=== PATIENT | female | born 1980 | race Asian ===

== ENCOUNTER 2020-06-21 12:45 | Emergency (ER) | payer OTHER ==
--- NOTE | 2020-06-21 14:59 | ED Physician Documentation ---
PD HPI SKIN - Stated complaint Stated Complaint: RASH - Chief complaint Chief Complaint: Wound - History obtained from History obtained from: Patient - Additional information Additional information: Pt presents w/ pruritic rash on legs, arms, torso for several days. Improving but still present. Pruritic. Denies recent swimming or water contact, hiking, new soaps/lotions/meds/foods, or other irritant contacts. No one else in the house has a similar rash. Hasn't slept anywhere else. Denies fever or systemic sx. Taking cetirizine w/o relief. Review of Systems Constitutional: reports: Reviewed and negative Cardiac: reports: Reviewed and negative Respiratory: reports: Reviewed and negative GI: reports: Reviewed and negative Skin: reports: Rash. denies: Lesions, Abrasion (s), Laceration (s), Bite / sting Musculoskeletal: reports: Reviewed and negative Neurologic: reports: Reviewed and negative Psychiatric: reports: Reviewed and negative PD PAST MEDICAL HISTORY - Past Medical History Past Medical History: No - Present Medications Home Medications: Ambulatory Orders Medication Instructions Recorded Confirmed hydrOXYzine HCL [Hydroxyzine HCl] 25 mg PO Q8H PRN #30 tablet 06/21/20 predniSONE [Prednisone] 40 mg PO DAILY #10 tablet 06/21/20 - Allergies Allergies/Adverse Reactions: Allergies Allergy/AdvReac Type Severity Reaction Status Date / Time No Known Drug Allergies Allergy Verified 06/21/20 12:53 PD ED PE NORMAL - Vitals Vital signs reviewed: Yes - General General: Alert and oriented X 3, No acute distress, Well developed/nourished - Cardiac Cardiac: RRR, No murmur, No gallop, No rub - Respiratory Respiratory: No respiratory distress, Clear bilaterally - Abdomen Abdomen: Normal bowel sounds, Non tender, Non distended - Derm Derm: Normal color, Other (red raised papules/bites on arms, legs, torso excluding palms/soles/face. some areas excoriated, no drainage, no tenderness or erythema. ) - Neuro Neuro: Alert and oriented X 3 Eye Opening: Spontaneous Motor: Obeys Commands Verbal: Oriented GCS Score: 15 - Psych Psych: Normal mood, Normal affect Results - Vitals Vitals: Vital Signs - 24 hr 06/21/20 06/21/20 12:53 15:06 Temperature 36.5 C 36.5 C Heart Rate 120 H 116 H Respiratory 14 16 Rate Blood Pressure 121/83 H 114/69 O2 Saturation 98 98 Oxygen O2 Source Room air PD MEDICAL DECISION MAKING - ED course Complexity details: considered differential, d/w patient ED course: Pt with diffuse rash on arms, legs, torso. Suspect a mite or bedbug but no one else in the family with same. No other possible irritant contacts. Rash is improving though still quite present. Will do hydroxyzine and prednisone for pruritis. If no improvement in 5-7 days, follow up with PCP. If any drainage, swelling, pain, fever, or otherwise worsening sx, return to the ER. Departure - Departure Disposition: 01 Home, Self Care Condition: Good Prescriptions: hydrOXYzine HCL [Hydroxyzine HCl] 25 mg PO Q8H PRN #30 tablet PRN Reason: pruritis predniSONE [Prednisone] 40 mg PO DAILY #10 tablet Discharge Date/Time: 06/21/20 15:06
[2020-06-21 15:06] VITALS: BP 114/69
== END 2020-06-21 15:06 | disposition home or self-care (01) ==
LOC: ED 12:45
DX: L29.9 Pruritus, unspecified (principal); R21 Rash and other nonspecific skin eruption
CPT/HCPCS: 99282; 99284

== ENCOUNTER 2024-03-21 11:26 | Emergency (ER) | payer OTHER ==
[2024-03-21 11:56] LABS: BILIRUBIN,URINE NEGATIVE (NEGATIVE); GLUCOSE, URINE (UA) >=1000 mg/dL (NEGATIVE); KETONES,URINE (UA) NEGATIVE (NEGATIVE); LEUKOCYTE ESTERASE, URINE TRACE (NEGATIVE); NITRITE,URINE NEGATIVE (NEGATIVE); OCCULT BLOOD,URINE MODERATE (NEGATIVE); PROTEIN,URINE 30 mg/dL (NEGATIVE); UROBILINOGEN,URINE 0.2 (NORMAL) E.U./dL (NORMAL)
[2024-03-21 12:03] LABS: BASOPHILS # (AUTO) 0.1 10^3/uL (0.0-0.1); BASOPHILS % (AUTO) 0.5 %; EOSINOPHILS # (AUTO) 0.1 10^3/uL (0.0-0.7); EOSINOPHILS % (AUTO) 0.9 %; HCT - HEMATOCRIT 43.9 % (37.0-47.0); HGB - HEMOGLOBIN 14.7 g/dL (12.0-16.0); LYMPHOCYTES # (AUTO) 2.2 10^3/uL (1.5-3.5); LYMPHOCYTES % (AUTO) 23.6 %; MEAN CORPUSCULAR HEMOGLOBIN 30.4 pg (27.0-31.0); MEAN CORPUSCULAR HGB CONC 33.5 g/dL (32.0-36.0); MEAN CORPUSCULAR VOLUME 90.9 fL (81.0-99.0); MEAN PLATELET VOLUME 9.3 fL (7.9-10.8); MONOCYTES # (AUTO) 0.3 10^3/uL (0.0-1.0); MONOCYTES % (AUTO) 3.5 %; NEUTROPHILS # (AUTO) 6.6 10^3/uL (1.5-6.6); PLT - PLATELET COUNT 262 10^3/uL (130-450); RED BLOOD COUNT 4.83 10^6/uL (4.20-5.40); RED CELL DISTRIBUTION WIDTH 11.6 % (12.0-15.0); WHITE BLOOD COUNT 9.3 x10^3/uL (4.8-10.8)
[2024-03-21 12:13] LABS: ALBUMIN 4.4 g/dL (3.2-5.5); ALBUMIN/GLOBULIN RATIO 1.4 (1.0-2.2); BILIRUBIN,TOTAL 0.4 mg/dL (0.2-1.0); CALCIUM 9.5 mg/dL (8.5-10.3); POTASSIUM 3.7 mmol/L (3.5-4.5); TOTAL PROTEIN 7.5 g/dL (6.4-8.9)
[2024-03-21] MEDS ORDERED: iohexoL-300 100 ML VIAL ONE (12:20)
[2024-03-21] MEDS: ONDANSETRON 4 MG/2 ML VIAL IVP STA (12:22)
[2024-03-21] MEDS: KETOROLAC 30 MG/ML VIAL IVP STA (12:24)
--- NOTE | 2024-03-21 12:25 | ED Physician Documentation ---
PD HPI ABD PAIN - Stated complaint Stated Complaint: ABD PX,NAUSEOUS,CHILLS - Chief complaint Chief Complaint: Abd Pain - History obtained from History obtained from: Patient - History of Present Illness Timing - onset: Yesterday Timing - details: Gradual onset Pain level max: 7 Pain level now: 6 Quality: Fullness/distended, Pain Location: LLQ Radiation: No: Chest, , Lower back, Left flank, Left shoulder, Right flank, Right shoulder, Upper back Improved by: Laying still Worsened by: Palpation Associated symptoms: Nausea. No: Fever, Vomiting, Hematemesis, Diarrhea, Const ipation, Melena, Hematochezia, Dysuria, Hematuria, Near syncope / syncope Recently seen: Not recently seen - Additional information Additional information: 43-year-old female presents to the emergency department complaining of left lower quadrant abdominal pain. She states that this started yesterday and has continued today. hShe denies any dysuria or urinary symptoms. States has had a kidney stone in the past and is unsure if this feels similar or not. She states that she feels "bloated". Denies any constipation, diarrhea. Feels nauseated but no vomiting. No fevers. No chills. No recent travel. No recent antibiotics. Took Tylenol this morning for her abdominal pain. Denies any possibility of . Review of Systems Constitutional: denies: Fever, Chills Nose: denies: Rhinorrhea / runny nose, Congestion GI: denies: Vomiting, Constipation, Diarrhea, Hematemesis, Bloody / black stool : denies: Dysuria, Frequency, Hesitancy, Incontinent, Hematuria, Discharge, Now EGA Skin: denies: Rash Musculoskeletal: denies: Neck pain PD PAST MEDICAL HISTORY - Past Medical History Past Medical History: Yes Endocrine/Autoimmune: Type 2 diabetes - Past Surgical History Past Surgical History: Yes /[employer]: section - Present Medications Home Medications: Ambulatory Orders Medication Instructions Recorded Confirmed hydrOXYzine HCL [Hydroxyzine HCl] 25 mg PO Q8H PRN #30 tablet 06/21/20 predniSONE [Prednisone] 40 mg PO DAILY #10 tablet 06/21/20 Cefpodoxime Proxetil [Vantin] 100 mg PO Q12H #20 tablet 03/21/24 HYDROcod/ACETAM 5/325 [[place] 5/325] 1 - 2 ea PO Q6H PRN #14 tablet 03/21/24 Ibuprofen [Motrin] 800 mg PO Q8H PRN #30 tablet 03/21/24 Ondansetron Odt [Zofran] 4 mg TL Q6H PRN #20 tablet 03/21/24 - Allergies Allergies/Adverse Reactions: Allergies Allergy/AdvReac Type Severity Reaction Status Date / Time No Known Drug Allergies Allergy Verified 03/21/24 11:40 - Social History Does the pt smoke?: No Smoking Status: Former smoker Does the pt drink ETOH?: Yes Does the pt have substance abuse?: No PD ED PE NORMAL - Vitals Vital signs reviewed: Yes - General General: Alert and oriented X 3, No acute distress - HEENT HEENT: Moist mucous membranes - Neck Neck: Supple, no meningeal sign - Cardiac Cardiac: RRR, Strong equal pulses - Respiratory Respiratory: No respiratory distress, Clear bilaterally - Abdomen Abdomen: Soft, Non distended, Other (Mild tenderness to palpation left lower quadrant. No peritoneal signs.) - Female Female : Pt declined - Back Back: No CVA TTP, No spinal TTP - Derm Derm: Warm and dry - Extremities Extremities: No edema - Neuro Neuro: Alert and oriented X 3 - Psych Psych: Normal mood, Normal affect Results - Vitals Vitals: Vital Signs - 24 hr 03/21/24 03/21/24 11:35 13:40 Temperature 36.2 C L 36.8 C Heart Rate 84 90 Respiratory 18 16 Rate Blood Pressure 141/112 H 130/88 H O2 Saturation 99 98 Oxygen O2 Source Room air - Labs Labs: Laboratory Tests 03/21/24 03/21/24 03/21/24 11:46 11:51 11:51 WBC 9.3 RBC 4.83 Hgb 14.7 Hct 43.9 MCV 90.9 MCH 30.4 MCHC 33.5 RDW 11.6 L Plt Count 262 MPV 9.3 Neut # (Auto) 6.6 Lymph # (Auto) 2.2 Addison # (Auto) 0.3 Eos # (Auto) 0.1 Baso # (Auto) 0.1 Absolute Nucleated RBC 0.00 Nucleated RBC % 0.0 Sodium 137 Potassium 3.7 Chloride 100 L Carbon Dioxide 28 Anion Gap 9.0 BUN 16 Creatinine 1.0 Estimated GFR (MDRD) 61 L Glucose 266 H Calcium 9.5 Total Bilirubin 0.4 AST 19 ALT 26 Alkaline Phosphatase 40 L Total Protein 7.5 Albumin 4.4 Globulin 3.1 Albumin/Globulin Ratio 1.4 Lipase 72 Urine Color YELLOW Urine Clarity CLEAR Urine pH 6.0 Ur Specific [place] 1.025 Urine Protein 30 H Urine Glucose (UA) >=1000 H Urine Ketones NEGATIVE Urine Occult Blood MODERATE H Urine Nitrite NEGATIVE Urine Bilirubin NEGATIVE Urine Urobilinogen 0.2 (NORMAL) Ur Leukocyte Esterase TRACE H Urine RBC 6-10 H Urine WBC >25 H Urine WBC Clumps PRESENT Ur Squamous Epith Cells MOD Squamous H Urine Bacteria Few Ur Microscopic Review INDICATED Urine Culture Comments NOT INDICATED Urine HCG, Qual NEGATIVE PD Medical Decision Making - ED course Complexity details: reviewed results, re-evaluated patient, considered differential, d/w patient ED course: 43-year-old female with left-sided abdominal pain. CT scan shows a 7 mm proximal left ureteral stone with hydronephrosis. Does have a UTI as well but no fever or elevated white blood cell count. Given IV Rocephin. Pain well- controlled with Toradol. Discussed the case with Dr. Lea, urology, recommends follow-up close in the clinic next week. Strict return precautions given for fevers, chills or uncontrolled pain. Will place on antibiotics for home as well. No evidence of sepsis. Patient counseled regarding signs and symptoms for which I believe and urgent re-evaluation would be necessary. Patient with good understanding of and agreement to plan and is comfortable going home at this time This document was made in part using voice recognition software. While efforts are made to proofread this document, sound alike and grammatical errors may occur. Departure - Departure Disposition: 01 Home, Self Care Clinical Impression: Ureteral stone UTI (urinary tract infection) Qualifiers: Urinary tract infection type: acute cystitis Hematuria presence: with hematuria Qualified Code(s): N30.01 - Acute cystitis with hematuria Condition: Good Instructions: ED UTI Cystitis Female, ED Stone Renal W Colic Follow-Up: SRAVAN ESPARZA MD [Primary Care Provider] - Marlon Lea MD [Provider Admit Priv/Credential] - Within 1 week Prescriptions: Ibuprofen [Motrin] 800 mg PO Q8H PRN #30 tablet PRN Reason: PAIN &/OR FEVER HYDROcod/ACETAM 5/325 [[place] 5/325] 1 - 2 ea PO Q6H PRN #14 tablet PRN Reason: Pain Cefpodoxime Proxetil [Vantin] 100 mg PO Q12H #20 tablet Ondansetron Odt [Zofran] 4 mg TL Q6H PRN #20 tablet PRN Reason: Nausea / Vomiting Comments: Your prescriptions were sent to [facility] in [place]. I would recommend you follow-up with Dr. Lea next week. You have a 7 mm left-sided ureteral stone. This may or may not pass on its own. You need to return here immediately if you develop fever, chills or uncontrolled pain. My narcotic instructions. I am prescribing a short course of narcotic pain medication for you. These are potentially dangerous and addictive medications that should be used carefully. These medications may constipate you. Take an [id number]-wynahec stool softener (docusate) twice daily with plenty of water while taking these medications. If you go 24 hours without a bowel movement, take [id number] miralax, per package instructions. Do not drink or drive while taking these medications. If you received narcotic or sedating medications while in the emergency department, do not drive for 24 hours. Store this medication in a safe, secure place and out of reach of children. It is a violation of federal law to give or sell this medication to another person or to use in a manner other than prescribed. The ED will not refill narcotic prescriptions, including prescriptions lost or stolen. To dispose of unwanted medications: 1. [facility] at [address] in [place] has a medication drop box. They accept prescription medications (in pill form) Saturday through Saturday 9:00 a.m. to 5:00 p.m. 2. [facility] [employer] [facility] accepts prescription medications (in pill form only) for disposal year round. Call for more information. 3. Contact the [facility] for the next [facility] sponsored prescription drug collection event. , [phone], or [phone]; EXAM: [id number] CT/ABPEW ([id number]) PROCEDURE: Abdomen/Pelvis W INDICATIONS: LLQ abd pain CONTRAST: 100ml omni 300 TECHNIQUE: After the administration of intravenous contrast, a CT scan of the abdomen and pelvis was performed. Images were recorded and evaluated at appropriate window settings. Reformats: coronal and sagittal. For radiation dose reduction, the following was used: automated exposure control, adjustment of mA and/or kV according to patient size. COMPARISON: None. FINDINGS: Image quality: Diagnostic. Lower chest: Unremarkable. Liver: No solid mass. Gallbladder: No radiopaque stones or wall thickening. Biliary tree: No intrahepatic or extrahepatic dilation, accounting for age. Spleen: No splenomegaly. Pancreas: No pancreatic ductal dilation. Adrenals: No adrenal nodule. Kidneys and ureters: Multiple nonobstructing right renal calculi (at least 10) with the largest measuring 4 mm in the interpolar region. No right ureterolithiasis or hydroureteronephrosis. Multiple nonobstructing left renal calculi with the largest measuring up to 3 mm in the interpolar region. There is an obstructing 7 mm calculus (HU 1790) and the proximal left ureter (2/75) with moderate upstream hydroureteronephrosis. Additional multiple punctate calculi are seen in the distal left ureter and at the UVJ, for example series 2 image 130-131. No renal cystic lesion which requires follow up. No solid mass. Stomach, bowel and peritoneum: No gastric or small bowel dilation. No abnormal wall thickening. No pathologic free fluid. Lymph nodes: No central or retroperitoneal adenopathy. Vessels: No infrarenal aortic aneurysm. Patent portal vein. PELVIS Reproductive organs: Surgical clips in the bilateral adnexal regions.. Bladder: No abnormal wall thickening, accounting for underdistention. Pelvic lymph nodes: No pelvic adenopathy by size criteria. Bones: No aggressive osseous abnormality. Other: No significant ventral or inguinal hernia. IMPRESSION: Obstructing 7 mm calculus the left proximal ureter with moderate upstream hydroureteronephrosis. Additional punctate calculi in the distal left ureter at and adjacent to the ureterovesicular junction. Multiple bilateral nonobstructing renal calculi measuring up to 4 mm on the right and 3 mm on the left. Forms: PCP List Discharge Date/Time: 03/21/24 14:19
[2024-03-21 12:31] LABS: CLARITY,URINE CLEAR (CLEAR); HCG UR QUAL NEGATIVE
[2024-03-21 12:32] LABS: BACTERIA,URINE Few /HPF (None Seen); SQUAMOUS EPITHELIAL CELL,UR MOD Squamous (<= Few); WBC CLUMPS,URINE PRESENT; WBC,URINE >25 /HPF (0-5)
[2024-03-21] MEDS: iohexoL-300 100 ML VIAL IVP ONE (12:39)
--- NOTE | 2024-03-21 12:58 | CT Report ---
PROCEDURE: Abdomen/Pelvis W INDICATIONS: LLQ abd pain CONTRAST: 100ml omni 300 TECHNIQUE: After the administration of intravenous contrast, a CT scan of the abdomen and pelvis was performed. Images were recorded and evaluated at appropriate window settings. Reformats: coronal and sagittal. F or radiation dose reduction, the following was used: automated exposure control, adjustment of mA and /or kV according to patient size. COMPARISON: None. FINDINGS: Image quality: Diagnostic. Lower chest: Unremarkable. Liver: No solid mass. Gallbladder: No radiopaque stones or wall thickening. Biliary tree: No intrahepatic or extrahepatic dilation, accounting for age. Spleen: No splenomegaly. Pancreas: No pancreatic ductal dilation. Adrenals: No adrenal nodule. Kidneys and ureters: Multiple nonobstructing right renal calculi (at least 10) with the largest measu ring 4 mm in the interpolar region. No right ureterolithiasis or hydroureteronephrosis. Multiple nono bstructing left renal calculi with the largest measuring up to 3 mm in the interpolar region. There i s an obstructing 7 mm calculus (HU 1790) and the proximal left ureter (2/75) with moderate upstream h ydroureteronephrosis. Additional multiple punctate calculi are seen in the distal left ureter and at the UVJ, for example series 2 image 130-131. No renal cystic lesion which requires follow up. No kizzy d mass. Stomach, bowel and peritoneum: No gastric or small bowel dilation. No abnormal wall thickening. No pa thologic free fluid. Lymph nodes: No central or retroperitoneal adenopathy. Vessels: No infrarenal aortic aneurysm. Patent portal vein. PELVIS Reproductive organs: Surgical clips in the bilateral adnexal regions.. Bladder: No abnormal wall thickening, accounting for underdistention. Pelvic lymph nodes: No pelvic adenopathy by size criteria. Bones: No aggressive osseous abnormality. Other: No significant ventral or inguinal hernia. IMPRESSION: Obstructing 7 mm calculus the left proximal ureter with moderate upstream hydroureteronephrosis. Christophe tional punctate calculi in the distal left ureter at and adjacent to the ureterovesicular junction. Multiple bilateral nonobstructing renal calculi measuring up to 4 mm on the right and 3 mm on the lef t. Reviewed by: Richelle Irvin MD, PhD on 03/21/2024 11:57 AM AKDT Approved by: Richelle Irvin MD, PhD on 03/21/2024 11:57 AM MARCOS Station ID: [id number]
[2024-03-21] MEDS: cefTRIAXone 1 GM VIAL IVP STA (13:39)
[2024-03-21 13:46] VITALS: BP 130/88; O2SAT 98
== END 2024-03-21 14:19 | disposition home or self-care (01) ==
LOC: ED 11:26
DX: N20.1 Calculus of ureter (principal); N30.01 Acute cystitis with hematuria; E11.9 Type 2 diabetes mellitus without complications
CPT/HCPCS: 36415; 74177; 80053; 81001; 81025; 83690; 85025; 96374; 96375; 99284; Q9967; 81003; 87086